=== PATIENT | male | born 1955 | race Caucasian/White ===

== ENCOUNTER 2020-04-28 01:10 | Outpatient (CLI) | payer OTHER, SELFPAY ==
[2020-04-28 17:49] LABS: SARS-CoV-2 RNA PCR Negative
== END 2020-04-28 01:11 | disposition home or self-care (01) ==
LOC: ANHCOVIDDT 01:10
PROVIDERS: PCP Family Medicine; Visit Provider Internal Medicine Gastroenterology
DX: Z01.812 Encounter for preprocedural laboratory examination (principal); Z20.828 Contact with and (suspected) exposure to other viral communicable diseases
CPT/HCPCS: 87635; C9803; U0003

== ENCOUNTER 2020-05-01 01:55 | Day surgery (SDC) | payer OTHER, SELFPAY ==
[2020-04-24 14:56] VITALS: BMI 25.4
[2020-05-01] MEDS: LACTATED RINGERS 1,000 ML 150 ML IV CONT (06:53)
[2020-05-01 06:55] VITALS: BP 139/81; PULSE 72; RESP 16; TEMP 36.1; O2SAT 100; BMI 25.1
--- NOTE | 2020-05-01 07:29 | WPDANESEPPF ---
Anes - Initial Pre Proc Eval Procedure: Operation Date: 05/01/20 08:00 Proposed Procedures p Screening Colonoscopy - Abhijeet Lama MD Date/Time: 05/01/20 07:29 Surgeon: Abhijeet Lama MD Pre Op Diagnosis: neoplasm screening, hx colon polyps Patient Data Age: 64 Gender: M Height: 6 ft Weight: 84 kg Last Vital Signs Temp 97.0 F L 05/01/20 06:55 Pulse 72 05/01/20 06:55 Resp 16 05/01/20 06:55 BP 139/81 05/01/20 06:55 Pulse Ox 100 05/01/20 06:55 Allergies Allergy/AdvReac Type Severity Reaction Status Date / Time No Known Allergies Allergy Verified 05/01/20 06:54 Home Medications Medication Instructions Recorded Confirmed Type lisinopril 20 See Rx Instructions .ROUTE 01/09/20 04/24/20 Rx mg-hydrochlorothiazide 25 mg tablet .COMPLEX #90 tablet atorvastatin 10 mg tablet See Rx Instructions .ROUTE 03/21/20 04/24/20 Rx .COMPLEX #90 tablet testosterone cypionate 200 mg/mL 200 mg IM .Q4W #3 vial 04/04/20 04/24/20 Rx intramuscular oil dextroamphetamine-amphetamine ER 30 mg PO QAM #30 cap 04/11/20 04/24/20 Rx 30 mg 24hr capsule,extend release Patient hx anesthesia problems: none Family hx anesthesia problems: none PMFSH Past Medical History Medical History (Updated 02/06/20 @ 10:55 by Clif Alba MD) ADD (attention deficit disorder) without hyperactivity CKD (chronic kidney disease) stage 3, GFR 30-59 ml/min Essential (primary) hypertension Hyperlipidemia LDL goal <100 Hypogonadism in male Lumbar spondylosis Surgical History Surgical History History of foot surgery left foot History of hand surgery (~07/2000) left hand Hx of tonsillectomy Social History Social History Smoking status: Former smoker Second hand tobacco smoke exposure: No Smoking end date: 08/03/00 Alcohol intake: current Substance use: never Substance use type: does not use Living arrangements: with family Gender identity (if verbalized by the patient): Male Anes - Eval Final PreProcedure Day of Procedure 05/01/20 07:29 Patient weight: normal Heart: regular rate and rhythm Lungs: clear to auscultation Airway: Mallampati scale class II Neurological: alert and oriented Last oral intake: >/= 8 hours ASA classification: III Emergent: no Anesthetic plan: proceed Anesthesia type and monitoring: general GIVS and standard monitoring Informed Consent: The patient's anesthetic plan and its attendant risks and benefits were discussed with the patient/family/POA. Questions were solicited and answers provided to the satisfaction of the patient/family/POA.
--- NOTE | 2020-05-01 07:43 | WPDGICN ---
Assessment and Plan Assessment and plan (1) History of colon polyps: Code(s): Z86.010 - Personal history of colonic polyps Status: Acute Assessment and Plan: Patient presents today for screening colonoscopy because of prior history of colon polyps. Further recommendations will be given after endoscopy. There is no known family history of colon disease. GI Consult Note Consult date/time: 05/01/20 07:43 HPI: Sami Bello is a 64 year old male seen in evaluation at the request of Dr Alba. Patient presents for screening colonoscopy. Patient has a history of colon polyps in the past. His current weight appetite bowel movements are normal. He denies abdominal pain. He has had no bleeding. Patient's family history is noncontributory. Review of Systems Review of Systems: All systems reviewed & are unremarkable except as noted in HPI and below PMFSH Past Medical History Medical History ADD (attention deficit disorder) without hyperactivity CKD (chronic kidney disease) stage 3, GFR 30-59 ml/min Essential (primary) hypertension Hyperlipidemia LDL goal <100 Hypogonadism in male Lumbar spondylosis Surgical History Surgical History History of foot surgery left foot History of hand surgery (~07/2000) left hand Hx of tonsillectomy Social History Social History Smoking status: Former smoker Second hand tobacco smoke exposure: No Smoking end date: 08/03/00 Alcohol intake: current Substance use: never Substance use type: does not use Living arrangements: with family Gender identity (if verbalized by the patient): Male Meds Home Medications and Allergies Home Medications Medication Instructions Recorded Confirmed Type lisinopril 20 See Rx Instructions .ROUTE 01/09/20 04/24/20 Rx mg-hydrochlorothiazide 25 mg tablet .COMPLEX #90 tablet atorvastatin 10 mg tablet See Rx Instructions .ROUTE 03/21/20 04/24/20 Rx .COMPLEX #90 tablet testosterone cypionate 200 mg/mL 200 mg IM .Q4W #3 vial 04/04/20 04/24/20 Rx intramuscular oil dextroamphetamine-amphetamine ER 30 mg PO QAM #30 cap 04/11/20 04/24/20 Rx 30 mg 24hr capsule,extend release Allergies Allergy/AdvReac Type Severity Reaction Status Date / Time No Known Allergies Allergy Verified 05/01/20 06:54 Vital Signs Vital Signs - 24 hr 05/01/20 06:55 Temperature 97.0 F L Pulse Rate 72 Respiratory Rate 16 Blood Pressure 139/81 Pulse Oximetry 100 Exam Narrative: Exam Narrative: Physical exam reveals patient to be alert. Vital signs stable. HEENT exam unremarkable. Lungs are clear to auscultation and percussion. Heart is without murmur or extra sounds. Abdominal exam bowel sounds are present soft nontender with no hepatosplenomegaly. Digital external rectal exam is normal.
[2020-05-01 08:11] VITALS: BP 118/75; PULSE 70; RESP 18; O2SAT 100
[2020-05-01 08:21] VITALS: BP 134/81; PULSE 67; RESP 18; O2SAT 100
[2020-05-01 08:31] VITALS: BP 143/87; PULSE 64; RESP 18; O2SAT 100
--- NOTE | 2020-05-01 11:04 | SUR.PHASEII ---
0837 discharge instructions given, monitor shows 1st degree heart block- anesthesia aware-instructed pt to follow up with primary. explained to patient about monitor showing 1st degree heart block and need to follow up on this with primary.
== END 2020-05-01 08:45 | disposition home or self-care (01) ==
PROVIDERS: PCP Family Medicine; Visit Provider Internal Medicine Gastroenterology
PROC: 0DJD8ZZ Inspection of Lower Intestinal Tract, Via Natural or Artificial Opening Endoscopic (ICD-10-PCS; CPT 45378; principal; 2020-05-01 08:00)
DX: Z12.11 Encounter for screening for malignant neoplasm of colon (principal); K64.8 Other hemorrhoids; K57.30 Diverticulosis of large intestine without perforation or abscess without bleeding; I12.9 Hypertensive chronic kidney disease with stage 1 through stage 4 chronic kidney disease, or unspecified chronic kidney disease; N18.3 Chronic kidney disease, stage 3 (moderate); E78.5 Hyperlipidemia, unspecified; Z87.891 Personal history of nicotine dependence; Z86.010 Personal history of colon polyps
CPT/HCPCS: 45378; J2704; J7120

== ENCOUNTER 2020-07-25 06:35 | Outpatient (CLI) | payer OTHER, SELFPAY ==
--- NOTE | ~2020-07-25 | CT_ITS ---
EXAMINATION: CT abdomen pelvis w con INDICATION: Abdominal pain TECHNIQUE: Computed tomographic images of the abdomen and pelvis were obtained after the administrati on of 100 cc of Omnipaque 350 intravenous contrast. The dose-length product (DLP) was 506.06 mGy-cm. Automated exposure control and iterative reconstruction technique were employed. COMPARISON: 04/11/2013 FINDINGS: Minimal dependent atelectasis is present in the lung bases. The heart size is normal. There is focal hepatic steatosis The ligamentum teres. The liver is otherwise unremarkable. The spleen, pancreas, gallbladder, and adr enal glands are normal. There is a 2.9 cm cyst of the right kidney. Cysts of the left kidney measure up to 1.6 cm. The left renal artery is thrombosed and mildly expanded at its origin. There has been m oderate atrophy of the left kidney since the comparison examination. No pathologically enlarged abdom inal or pelvic lymph nodes are identified. There is no free intraperitoneal gas or evidence of bowel obstruction. Colonic diverticulosis is present without evidence of diverticulitis. There are appendic oliths in the otherwise normal-appearing appendix. There is mild lumbar spondylosis. IMPRESSION: 1. Findings consistent with subacute thrombosis at the origin of the left renal artery with moderate atrophy of the left kidney. Reviewed, dictated and finalized at location [facility]. [facility]
[2020-07-25 07:05] LABS: Estimated Glomerular Filt Rate 41
== END 2020-07-25 06:36 | disposition home or self-care (01) ==
PROVIDERS: PCP Family Medicine; Visit Provider Internal Medicine Gastroenterology
DX: R10.9 Unspecified abdominal pain (principal)
CPT/HCPCS: 74177; Q9967

== ENCOUNTER 2020-09-19 07:41 | Outpatient (CLI) | payer OTHER, SELFPAY ==
--- NOTE | ~2020-09-19 | CT_ITS ---
EXAMINATION: CTA abdomen DATE: 09/19/2020 08:22 INDICATION: Upper abdominal pain. Renal artery stenosis. Hypertension. TECHNIQUE: Computed tomography (CT) of the abdomen was performed with 100 cc Omnipaque 350 intravenou s contrast. Automated exposure control and iterative reconstruction technique were employed. Exam dos e: 387.24 mGy-cm total exam DLP. COMPARISON: 07/25/2020 CT abdomen pelvis FINDINGS: There is mild discoid atelectasis or scarring in the right lower lobe. Normal heart size. No pericardial or pleural effusion. No hepatic, splenic, pancreatic or adrenal space-occupying mass lesion. The gallbladder is present. N o gallbladder wall thickening or pericholecystic fluid or fat stranding. No bile duct or pancreatic d uct dilatation. No pancreatic mass lesion or calcification. Normal splenic size. Normal morphology of the adrenal glands. There is a 2.8 cm right renal cyst. There is severe atrophy of the left kidney. Left renal cysts are suggested. There is nearly complete occlusion of the left renal artery proximally. There is severe smooth atroph y of the left kidney. There are 2 right renal arteries originating from the abdominal aorta. No abdominal aortic aneurysm or dissection. There is minimal abdominal aortic atherosclerosis. The ce liac, superior mesenteric and inferior mesenteric arteries are widely patent. No intraperitoneal or retroperitoneal mass lesion or adenopathy or ascites. Normal appendix. There is diverticulosis of the left and right colon. No bowel obstruction, bowel wall thickening, pne umatosis or intraperitoneal free air is evident. IMPRESSION: Severe left renal artery stenosis with associated left renal prominent atrophy Bilateral renal cysts Diverticulosis of left and right colon Reviewed, dictated and finalized at [facility]. Reviewed, dictated and finalized at location B. ECTOR SCALES IMPRESSION: Severe left renal artery stenosis with associated left renal promi nent atrophy Bilateral renal cysts Diverticulosis of left and right colon
[2020-09-19 08:14] LABS: Estimated Glomerular Filt Rate > 60
== END 2020-09-19 07:42 | disposition home or self-care (01) ==
PROVIDERS: PCP Family Medicine; Visit Provider Internal Medicine Nephrology
DX: I70.1 Atherosclerosis of renal artery (principal); R10.10 Upper abdominal pain, unspecified; N28.1 Cyst of kidney, acquired; K57.30 Diverticulosis of large intestine without perforation or abscess without bleeding
CPT/HCPCS: 74175; Q9967

== ENCOUNTER 2020-09-25 13:55 | Outpatient (CLI) | payer OTHER, SELFPAY ==
--- NOTE | ~2020-09-25 | NM_ITS ---
EXAMINATION: NM renal flow and function DATE: 09/25/2020 15:54 INDICATION: Renal artery stenosis TECHNIQUE: 7.63 mCi Tc-99m MAG3 was administered IV. The patient was scanned in the supine position. A posterior abdominal radionuclide angiogram was obtained. A subsequent time course of static images of the kidneys, ureters, and bladder was obtained. COMPARISON: CT angiogram dated 09/19/2020 FINDINGS: The posterior abdominal radionuclide angiogram and sequential static images show normal size, positio n, and morphology of the right kidney. The left kidney is normally positioned but small. Peak renal p arenchymal uptake was 1.9 min in right kidney (normal peak 3-5 minutes). There is essentially no incr ease in uptake in the left kidney following the first pass of the activity bolus. The relative early renal uptake was 5.0% on the left and 95.0% on the right (<40% is abnormal). No abnormalities of the ureters or bladder are seen. T1/2 for clearance of activity from the left kidney and proximal collecting system was measurable wit h essentially plateau of likely blood pool activity throughout the 30 minute duration of the study. T1/2 for clearance of activity from the right kidney and proximal collecting system was 11.5 minutes. Notes on interpretation: T1/2 <10 minutes is normal, 10-15 minutes is low grade obstruction of questi onable clinical significance, 15-20 minutes is partial obstruction that is likely clinically signific ant, >20 minutes is high grade obstruction. Note that false positives may be seen with supine positio janeen, dehydration, severely dilated nonobstructed kidney, atonic collecting system, poor renal functi on, and chronic furosemide use. IMPRESSION: 1. Atrophic left kidney which contributes only 5% to total renal function. 2. Minimally increased T1/2 of clearance from the right kidney, equivocal for low-grade obstruction o f questionable clinical significance. Reviewed, dictated and finalized at location A. [place] PLANNER IMPRESSION: 1. Atrophic left kidney which contributes only 5% to total renal function. 2. Minimally increased T1/2 of clearance from the right kidney, equivocal for l ow-grade obstruction of questionable clinical significance.
== END 2020-09-25 13:56 | disposition home or self-care (01) ==
PROVIDERS: PCP Family Medicine; Visit Provider Internal Medicine Nephrology
DX: I70.1 Atherosclerosis of renal artery (principal); R10.10 Upper abdominal pain, unspecified
CPT/HCPCS: 78707; A9562

== ENCOUNTER 2020-12-20 06:34 | Outpatient (CLI) | payer OTHER, SELFPAY | END 2020-12-20 06:35 | disposition home or self-care (01) | PROVIDERS: PCP Family Medicine; Visit Provider Internal Medicine Nephrology | DX: R94.7 Abnormal results of other endocrine function studies (principal); I95.1 Orthostatic hypotension | CPT/HCPCS: 36415; 82533; 96372; J0834 ==

== ENCOUNTER 2021-09-24 11:08 | Outpatient (CLI) | payer OTHER, SELFPAY ==
--- NOTE | 2021-09-24 | ECG_ITS ---
Measurements Intervals [place] Rate: 70 P: -8 UT: 341 QRS: 11 QRSD: 114 T: 40 QT: 413 QTc: 447 Interpretive Statements SINUS RHYTHM WITH MARKED FIRST DEGREE AV BLOCK POSSIBLE LEFT ATRIAL ENLARGEMENT INTRAVENTRICULAR CONDUCTION DELAY ABNORMAL ECG Electronically Signed On 09-24-2021 12:34:26 SIZING SPRAYER by J Carlos Macias D.O.
== END 2021-09-24 11:09 | disposition home or self-care (01) ==
PROVIDERS: PCP Family Medicine; Visit Provider Podiatrist Foot & Ankle Surgery
DX: R03.0 Elevated blood-pressure reading, without diagnosis of hypertension (principal); I45.9 Conduction disorder, unspecified; I44.0 Atrioventricular block, first degree
CPT/HCPCS: 93005

== ENCOUNTER 2022-07-16 11:06 | Outpatient (CLI) | payer OTHER, SELFPAY ==
--- NOTE | ~2022-07-16 | CT_ITS ---
Non-contrast Head CT History: Headache Technique: Axial non-contrast imaging of the brain was performed. Dose reduction technique was used on this scan by utilizing automated exposure control and iterative reconstruction technique. The dose -length product (DLP) was 605.33 mGy-cm. Findings: There is no evidence of intracranial hemorrhage, mass lesion, or acute infarct. Brain par enchyma appears normal. The ventricles and subarachnoid spaces are normal in size. The calvarium ap pears normal. The visualized paranasal sinuses and mastoid air cells are clear. Impression: No significant abnormality seen. Reviewed, dictated and finalized at location [] ED PRINTER Impression: No significant abnormality seen.
== END 2022-07-16 11:07 | disposition home or self-care (01) ==
PROVIDERS: PCP Family Medicine; Visit Provider Family Medicine
DX: R51.9 Headache, unspecified (principal)
CPT/HCPCS: 70450

== ENCOUNTER 2022-10-09 09:25 | Outpatient (CLI) | payer BC, SELFPAY ==
[2022-10-09 20:56] LABS: Alanine Aminotransferase 25 U/L (6-50); Albumin Level 4.6 g/dL (3.5-5.1); Alkaline Phosphatase 99 U/L (38-126); Anion Gap 8 mmol/L (8-16); Aspartate Amino Transferase 51 U/L (17-59); Bilirubin,Total 1.2 mg/dL (0.2-1.3); Blood Urea Nitrogen 27 mg/dL (9-20); Calcium 8.6 mg/dL (8.4-10.2); Carbon Dioxide 28 mmol/L (22-30); Chloride 103 mmol/L (98-107); Estimated Glomerular Filt Rate 47; Glucose 50 mg/dL (65-110); Potassium 4.4 mmol/L (3.4-5.0); Sodium 139 mmol/L (137-145)
== END 2022-10-09 09:26 | disposition home or self-care (01) ==
LOC: ANHGOSHLAB 09:26
PROVIDERS: PCP Family Medicine; Visit Provider Family Medicine
DX: E29.1 Testicular hypofunction (principal); I10 Essential (primary) hypertension
CPT/HCPCS: 36415; 80053

== ENCOUNTER 2023-01-03 18:14 | Emergency (ER) | payer BC, SELFPAY ==
--- NOTE | ~2023-01-03 | XR_ITS ---
AP view of the pelvis and AP and lateral views of the right hip Clinical history: Pain Findings: No acute fracture or dislocation is seen. Osseous alignment is anatomic. Bilateral hip and SI joint spaces are preserved. Soft tissues are unremarkable. Impression: No significant abnormality is seen. Reviewed, dictated and finalized at [facility]. Impression: No significant abnormality is seen.
--- NOTE | ~2023-01-03 | XR_ITS ---
Lumbosacral Spine: AP and lateral views Clinical History: Pain COMPARISON: 01/11/2018 Findings: The normal lordotic curve is maintained. No fracture identified. Mild degenerative disc kal nges are present throughout the lumbar spine. 4 mm retrolisthesis of L3 over L4 noted. There is mild to moderate facet arthropathy at L4-L5 and L5-S1. The sacroiliac joints are normally outlined. Impression: No acute fracture. 4 mm retrolisthesis of L3 over L4. Mild degenerative spondylosis. Reviewed, dictated and finalized at location M. Impression: No acute fracture. 4 mm retrolisthesis of L3 over L4. Mild degenerative spondylosis.
[2023-01-03 18:22] VITALS: BP 155/80; PULSE 96; RESP 16; TEMP 36.6; O2SAT 100
--- NOTE | 2023-01-03 20:03 | ED.FALL ---
HPI - Fall General Chief Complaint: Fall Stated Complaint: FALL, R HIP PAIN Time Seen by Provider: 01/03/23 19:38 History of Present Illness HPI Narrative: Patient is a 67-year-old male presenting with right hip pain after a fall. Patient states that he fell off of a 3 step ladder approximately 4 hours ago. States that he fell back and landed on his right hip. Denies losing consciousness. States that he had severe right hip pain following the fall. States that it took approximately 30 minutes for the pain to improve before he was able to stand. States that he was able to walk normally but as he was sitting on the couch eating dinner he again started having severe right hip and flank pain. Denies numbness or weakness. Denies neck pain. Denies chest or abdominal pain. No nausea or vomiting. States that as long as he stays still, his pain is minimal. Related Data Home Medications Medication Instructions Recorded Confirmed aspirin 81 mg tablet,delayed 81 mg PO DAILY 08/06/20 01/06/23 release atorvastatin 40 mg tablet 40 mg PO QHS 02/06/21 01/06/23 amlodipine 5 mg tablet 5 mg PO DAILY 01/06/23 01/06/23 Allergies Allergy/AdvReac Type Severity Reaction Status Date / Time No Known Allergies Allergy Verified 01/06/23 09:23 Review of Systems Review of Systems: All systems reviewed & are unremarkable except as noted in HPI and below PMFSH Past Medical History Medical History Acute trigeminal herpes zoster 02/2020 ADD (attention deficit disorder) without hyperactivity CKD (chronic kidney disease) stage 3, GFR 30-59 ml/min Erectile dysfunction Essential (primary) hypertension History of colon polyps Hyperlipidemia LDL goal <100 Left renal atrophy Lumbar spondylosis Renal artery thrombosis Stenosis of left renal artery Surgical History Surgical History History of esophageal dilatation 04/2019 History of foot surgery (~2009) left foot History of foot surgery (~2021) History of hand surgery (~07/2000) left hand Hx of tonsillectomy (~1960) Family History Family History Mother Patient's mother is in good health Family history of malignant neoplasm of breast in first degree relative Father Family history of renal cell carcinoma Social History Social History Smoking status: Former smoker Tobacco type: cigarettes Second hand tobacco smoke exposure: No Smoking end date: 08/03/89 Alcohol intake: current Alcohol use details: consumes 1 beer daily Substance use: never Substance use type: does not use Lack of Transportation: No Lack of Food: Never True Current Housing: I Have Housing Concerned About Future Housing: No Difficulty Paying Gas/Electric Bills: No Difficulty Paying for Meds: No Currently Unemployed: No Education: High School Diploma/GED Difficulty w/ Childcare or Family Care: No Living arrangements: with family Gender identity (if verbalized by the patient): Male Exam Narrative: GENERAL: Well-appearing, well-nourished, and in no acute distress. HEAD: Normocephalic, atraumatic. EYES: PERRLA and EOMI. ENT: Nares clear, no rhinorrhea or epistaxis. Mucous membranes moist. NECK: Supple. BACK: no midline tenderness of cervical/thoracic/lumbar spine CHEST: Clear to auscultation. No respiratory distress. HEART: Regular rate and rhythm. Normal peripheral pulses. ABDOMEN: Soft, nontender, nondistended EXTREMITIES: Normal range of motion. tender over lateral R hip and R iliac crest SKIN: Warm, dry, no rash. NEURO: No focal deficits. Alert and oriented x3. PSYCH: Normal mood and affect. Course Vital Signs Vital signs: Vital Signs Temperature 98 F 01/03/23 18:22 Pulse Rate 96 01/03/23 18:22 Respiratory Ra
[2023-01-03] MEDS: HYDROcodone/acetaminophen (*CRX) 5-325 MG TABLET 1 TAB PO (20:10)
[2023-01-03] MEDS: CYCLOBENZAPRINE HCL 10 MG TABLET PO (21:34)
[2023-01-03 21:51] VITALS: BP 115/78; PULSE 79; RESP 15; TEMP 36.4; O2SAT 96
== END 2023-01-03 21:52 | disposition home or self-care (01) ==
PROVIDERS: Emergency Provider Emergency Medicine; PCP Family Medicine
DX: M25.551 Pain in right hip (principal); W11.XXXA Fall on and from ladder, initial encounter; I12.9 Hypertensive chronic kidney disease with stage 1 through stage 4 chronic kidney disease, or unspecified chronic kidney disease; N18.30 Chronic kidney disease, stage 3 unspecified; E78.5 Hyperlipidemia, unspecified; Z87.891 Personal history of nicotine dependence; Z79.82 Long term (current) use of aspirin; F98.8 Other specified behavioral and emotional disorders with onset usually occurring in childhood and adolescence
CPT/HCPCS: 72100; 73502; 99284; A9270

== ENCOUNTER 2023-03-28 20:06 | Emergency (ER) | payer BC, SELFPAY ==
[2023-03-28] VITALS (17 sets, daily range): BP systolic 119–152; BP diastolic 78–87; PULSE 87–115; RESP 12–27; TEMP 36.8; O2SAT 93–99
--- NOTE | ~2023-03-28 | XR_ITS ---
EXAMINATION: XR chest 2V DATE: 03/28/2023 20:41 INDICATION: Left-sided chest tightness TECHNIQUE: PA and lateral views of the chest were obtained. COMPARISON: None FINDINGS: The lungs are clear with no focal airspace opacities, pulmonary edema, pleural effusion or pneumothor ax. Arch size is normal with mildly prominent left paracardial fat pad. Mild thoracic dextrocurvature . IMPRESSION: 1. No acute cardiopulmonary disease. Reviewed, dictated and finalized at location A.
--- NOTE | 2023-03-28 20:09 | ECG_ITS ---
Measurements Intervals [place] Rate: 111 P: 83 NC: 192 QRS: -21 QRSD: 106 T: 35 QT: 334 QTc: 454 Interpretive Statements Likely atrial tachycardia BORDERLINE LEFT AXIS DEVIATION [QRS AXIS < -20] ABNORMAL RHYTHM ECG NO PREVIOUS ECG AVAILABLE FOR COMPARISON Electronically Signed On 03-29-2023 11:13:26 CDT by Gage Steven MD
[2023-03-28 20:23] LABS: Basophils Absolute Auto 0.1 K/mm3 (0.0-0.1); Basophils Percent Auto 0.5 % (0.2-1.2); Eosinophils Absolute Auto 0.1 K/mm3 (0-0.3); Eosinophils Percent Auto 1.3 % (0-4.4); Hematocrit 45.7 % (42.0-52.0); Immature Granulocyte Absolute 0.06 K/mm3 (0.00-0.031); Immature Granulocyte Percent A 0.5 % (0-0.5); Lymphocytes Absolute Auto 2.88 K/mm3 (0.9-3.2); Lymphocytes Percent Auto 26.4 % (18.3-44.2); Mean Corpuscular HGB Conc 32.8 g/dl (32-36); Mean Corpuscular Hemoglobin 32.3 pg (26-34); Mean Corpuscular Volume 98.5 fl (80-100); Mean Platelet Volume 8.4 fl (7.4-10.4); Monocytes Absolute Auto 0.9 K/mm3 (0.1-0.6); Monocytes Percent Auto 7.9 % (2.6-8.5); Neutrophils Absolute Auto 6.9 K/mm3 (1.3-6.7); Neutrophils Percent Auto 63.4 % (45.5-73.1); Platelet Count Result 186 k/mm3 (150-375); Red Blood Count 4.64 M/mm3 (4.6-6.20); Red Cell Distribution Width 12.7 % (11.5-14.5); White Blood Count 10.9 K/mm3 (4.5-10.0)
[2023-03-28] MEDS: ASPIRIN 81 MG CHEWABLE TABLET 324 MG PO (20:26)
[2023-03-28 20:33] LABS: Alanine Aminotransferase 43 U/L (6-50); Albumin Level 4.1 g/dL (3.5-5.1); Alkaline Phosphatase 88 U/L (38-126); Anion Gap 6 mmol/L (8-16); Aspartate Amino Transferase 38 U/L (17-59); Bilirubin,Total 0.4 mg/dL (0.2-1.3); Blood Urea Nitrogen 32 mg/dL (9-20); Calcium 8.5 mg/dL (8.4-10.2); Carbon Dioxide 24 mmol/L (22-30); Chloride 107 mmol/L (98-107); Estimated CRCL calculation 40 ml/min; Estimated Glomerular Filt Rate 38; Glucose 99 mg/dL (65-110); INR 0.9; Lipase 145 U/L (23-300); Potassium 4.2 mmol/L (3.4-5.0); Prothrombin Time 12.7 Seconds (11.1-14.7); Sodium 137 mmol/L (137-145)
[2023-03-28 20:34] LABS: Partial Thromboplastin Time 24.6 SECONDS (22.3-36.8)
--- NOTE | 2023-03-28 20:39 | ED.GENADULT ---
HPI - General Adult General Chief complaint: Chest Pain Stated complaint: Low BP, High Heart Rate Time Seen by Provider: 03/28/23 20:27 History of Present Illness HPI narrative: Patient is a 67-year-old gentleman who presents the emergency department with chief complaint of fast heart rate. Patient reports that he was eating dinner and he felt as though his heart was beating a little faster than normal patient also said he felt a little bit of a full sensation in his chest. Patient reports he has history of renal artery stenosis and and reports that he has history of hypertension and has no prior history of cardiac disease. The patient reports his Apple Watch showed his heart rate was about 120 did not given atrial fibrillation morning. Related Data Home Medications Medication Instructions Recorded Confirmed aspirin 81 mg tablet,delayed 81 mg PO DAILY 08/06/20 01/06/23 release atorvastatin 40 mg tablet 40 mg PO QHS 02/06/21 01/06/23 amlodipine 5 mg tablet 5 mg PO DAILY 01/06/23 01/06/23 Allergies Allergy/AdvReac Type Severity Reaction Status Date / Time No Known Allergies Allergy Verified 03/28/23 20:20 Review of Systems Review of Systems: A 10 system review of systems was completed on the patient and is negative except for what is stated in the HPI. Nursing and ancillary documentation was reviewed. [facility] Past Medical History Medical History Acute trigeminal herpes zoster 02/2020 ADD (attention deficit disorder) without hyperactivity CKD (chronic kidney disease) stage 3, GFR 30-59 ml/min Erectile dysfunction Essential (primary) hypertension History of colon polyps Hyperlipidemia LDL goal <100 Left renal atrophy Lumbar spondylosis Renal artery thrombosis Stenosis of left renal artery Surgical History Surgical History History of esophageal dilatation 04/2019 History of foot surgery (~2009) left foot History of foot surgery (~2021) History of hand surgery (~07/2000) left hand Hx of tonsillectomy (~1960) Family History Family History Mother Patient's mother is in good health Family history of malignant neoplasm of breast in first degree relative Father Family history of renal cell carcinoma Social History Social History Smoking status: Former smoker Tobacco type: cigarettes Second hand tobacco smoke exposure: No Smoking end date: 08/03/89 Alcohol intake: current Alcohol use details: consumes 1 beer daily Substance use: never Substance use type: does not use Lack of Transportation: No Lack of Food: Never True Current Housing: I Have Housing Concerned About Future Housing: No Difficulty Paying Gas/Electric Bills: No Difficulty Paying for Meds: No Currently Unemployed: No Education: High School Diploma/GED Difficulty w/ Childcare or Family Care: No Living arrangements: with family Gender identity (if verbalized by the patient): Male Exam Narrative: GENERAL: Well-appearing, well-nourished, and in no acute distress. HEAD: Normocephalic, atraumatic. EYES: PERRLA and EOMI. ENT: Nares clear, no rhinorrhea or epistaxis. Mucous membranes moist. NECK: Supple. CHEST: Clear to auscultation. No respiratory distress. HEART: Regular rate and rhythm. No murmur heard. Normal peripheral pulses. ABDOMEN: Soft, nontender, nondistended, normal active bowel sounds. EXTREMITIES: Normal range of motion. No edema. SKIN: Warm, dry, no rash. NEURO: No focal deficits. Alert and oriented x3. PSYCH: Normal mood and affect. Course Vital Signs Vital signs: Vital Signs Temperature 36.8 C 03/28/23 20:12 Pulse Rate 108 H 03/28/23 20:12 Respiratory Rate 22 H 03/28/23 20:12 Blood Pressure 152
[2023-03-28 20:44] LABS: Troponin I < 0.012 ng/mL (0.000-0.034)
[2023-03-28] MEDS: SODIUM CHLORIDE 0.9% IV 1,000 ML 999 ML IV CONT ×2 (21:29→23:18)
[2023-03-28 23:39] LABS: Troponin I < 0.012 ng/mL (0.000-0.034)
--- NOTE | 2023-03-28 23:51 | PC.NURSE ---
Only 100 ml of 2nd liter of NS infused, patient did not want anymore to infuse. Patient states he feels much better and is ready to go home.
== END 2023-03-28 23:53 | disposition home or self-care (01) ==
PROVIDERS: Emergency Provider Emergency Medicine; PCP Family Medicine
DX: R00.2 Palpitations (principal); I12.9 Hypertensive chronic kidney disease with stage 1 through stage 4 chronic kidney disease, or unspecified chronic kidney disease; N18.30 Chronic kidney disease, stage 3 unspecified; E78.5 Hyperlipidemia, unspecified; Z87.891 Personal history of nicotine dependence
CPT/HCPCS: 36415; 71046; 80053; 83690; 84484; 85025; 85610; 85730; 93005; 96360; 96361; 99284; A9270; J7030

== ENCOUNTER 2023-11-24 14:47 | Outpatient (CLI) | payer MEDICARE, BC, SELFPAY ==
--- NOTE | ~2023-11-24 | XR_ITS ---
XR cervical spine min 6V 11/24/2023 15:09 Indication: Neck pain Procedure: 8 views of the cervical spine including flexion/extension views Comparison: 05/06/2010 Findings: There is disc narrowing and endplate hypertrophy at C5-6, C6-7 and C7-T1. No prevertebral s oft tissue swelling. No significant alteration of alignment with flexion/extension. There is uncinate and facet hypertrophy at the described levels above. Lateral masses normally aligned. Odontoid proce ss is normal. There is reversal of cervical lordosis. Impression: 1: Moderate cervical spondylosis. Reviewed, dictated and finalized at location B. Impression: 1: Moderate cervical spondylosis.
== END 2023-11-24 14:48 | disposition home or self-care (01) ==
LOC: ANHIMG 14:52
PROVIDERS: PCP Family Medicine; Visit Provider Family Medicine
DX: M47.892 Other spondylosis, cervical region (principal)
CPT/HCPCS: 72052

== ENCOUNTER 2023-12-20 13:32 | Outpatient (CLI) | payer MEDICARE, SELFPAY ==
--- NOTE | ~2023-12-20 | MR_ITS ---
EXAMINATION: MR cervical spine wo con DATE: 12/20/2023 15:11 INDICATION: Neck pain and headaches. TECHNIQUE: Magnetic resonance imaging (MRI) of the cervical spine was performed without intravenous c ontrast. Sequences included sagittal T2-weighted FSE, sagittal T2-weighted FS FSE, sagittal T1-weight ed FSE, axial MERGE, and axial T2-weighted FSE. COMPARISON: C-spine 11/24/2023 FINDINGS: Mild degenerative change at the atlantodental interval. Reversed lordosis centered at C5-6. Vertebral body heights are maintained. Multilevel moderate loss of disc height and hydration. The co rd signal is normal. Normal cervicomedulary junction. The following disc levels are specifically disc ussed: C2-C3: 3 mm right foraminal broad-based protrusion and marginal osteophyte complex. There is moderate right and mild left uncovertebral joint osteoarthritis. There is moderate right and mild left facet joint osteoarthritis. There is moderate neural foraminal stenosis. There is severe right and mild lef t central canal stenosis. C3-C4: Small broad-based disc bulge and marginal osteophyte complex. There is moderate left and mild right uncovertebral joint osteoarthritis. There is mild left and moderate right facet joint osteoarth ritis. There is moderate left and mild right neural foraminal stenosis. There is moderate central can al stenosis. C4-C5: Mild disc bulge and large osteophyte complex. There is moderate right and mild left uncoverteb ral joint osteoarthritis. There is moderate right and mild left facet joint osteoarthritis. There is severe right and mild left neural foraminal stenosis. There is mild central canal stenosis. C5-C6: Mild disc bulge and marginal osteophyte complex. There is severe right and mild left uncoverte bral joint osteoarthritis. There is mild right and no left facet joint osteoarthritis. There is sever e right and mild left neural foraminal stenosis. There is mild central canal stenosis. C6-C7: Mild disc bulge and marginal osteophyte complex. There is severe right and moderate left uncov ertebral joint osteoarthritis. There is mild bilateral facet joint osteoarthritis. There is moderate bilateral neural foraminal stenosis. There is mild central canal stenosis. C7-T1: Mild disc bulge and marginal osteophyte complex. There is moderate bilateral uncovertebral susannah nt osteoarthritis. There is moderate bilateral facet joint osteoarthritis. There is moderate right an d mild left neural foraminal stenosis. There is no central canal stenosis. IMPRESSION: Multilevel moderate degenerative disc disease, uncovertebral joint degenerative change, and facet art hropathy. 3 mm right foraminal C2-3 disc protrusion which contributes to severe right neural foraminal narrowin g at that level. Severe right C4-5 and C5-6 neural foraminal narrowing noted secondary to degenerative disc, uncoverte bral joint, and facet changes. Moderate central canal stenosis secondary to degenerative facet, disc, and uncovertebral joint change s at C2-3 and C3-4. Reviewed, dictated and finalized at location K. IMPRESSION: Multilevel moderate degenerative disc disease, uncovertebral joint degenerative change, and facet arthropathy. 3 mm right foraminal C2-3 disc protrusion which contributes to severe right izzy ral foraminal narrowing at that level. Severe right C4-5 and C5-6 neural foraminal narrowing noted secondary to degene rative disc, uncovertebral joint, and facet changes. Moderate central canal stenosis secondary to degenerative facet, disc, and unco vertebral joint changes at C2-3 and C3-4.
== END 2023-12-20 13:33 | disposition home or self-care (01) ==
LOC: ANHIMG 13:33
PROVIDERS: PCP Family Medicine; Visit Provider Nurse Practitioner Family
DX: M50.21 Other cervical disc displacement, high cervical region (principal); M50.322 Other cervical disc degeneration at C5-C6 level; M47.892 Other spondylosis, cervical region; M53.82 Other specified dorsopathies, cervical region; M47.812 Spondylosis without myelopathy or radiculopathy, cervical region; R93.89 Abnormal findings on diagnostic imaging of other specified body structures
CPT/HCPCS: 72141

== ENCOUNTER 2024-08-01 13:53 | Outpatient (CLI) | payer MEDICARE, SELFPAY ==
[2024-08-01 16:29] LABS: Influenza A QL RT-PCR Positive (Negative); Influenza B QL RT-PCR Negative (Negative); RSV RNA, RT-PCR Negative (Negative); SARS-CoV-2 RNA PCR Negative (Negative)
== END 2024-08-01 13:54 | disposition home or self-care (01) ==
LOC: ANHLAB 13:54
PROVIDERS: PCP Family Medicine; Visit Provider Family Medicine
DX: J06.9 Acute upper respiratory infection, unspecified (principal); Z20.822 Contact with and (suspected) exposure to COVID-19
CPT/HCPCS: 87637

== ENCOUNTER 2024-10-18 01:26 | Day surgery (SDC) | payer MEDICARE, SELFPAY ==
[2024-10-10 11:45] VITALS: BMI 25.4
--- OUTSIDE RECORDS SUMMARY | 2024-10-18 01:29 | XMS_ITS | Patient Health Summary ---
Author Organization [facility] Address [address] [facility] [facility] [place] [address] Care Team Providers Care Relocation Manager Name Role Phone Saurabh Hanson MD Primary Care Provider [phone] Note from [facility],non-owned Affiliates and Associated Physician Practices is amultiple site organization consisting of ambulatory clinics and hospital sitesin [place], [place], [place] and [place]. This disclosure is being madepursuant to the Care Everywhere program and may not contain all information available regarding this patient. Last updated 18.[facility] Social History Tobacco Use Types Packs/Day Years Used Date Smoking Tobacco: Never Assessed Sex and Gender Information Value Date Recorded Sex Assigned at Not on file Gender Identity Not on file Sexual Orientation Not on file Procedures * DERMATOPATHOLOGY(Performed 02/11/2023) * DERMATOPATHOLOGY(Performed 12/23/2021) * DERMATOPATHOLOGY(Performed 05/28/2021) * DERMATOPATHOLOGY(Performed 12/02/2018) Results * DERMATOPATHOLOGY (02/11/2023 1:16 PM CDT) Only the most recent of4 resultswithin the time period is included. Case Report Dermatopathology Report Case: [id number] Authorizing Provider: Leonie Amaral DO Collected: 02/11/2023 01:16 PM Ordering Location: [facility] DermPath Lab Received: 02/12/2023 11:52 AM Pathologist: Haley You MD Specimen: Skin, right ant le 1:31 PM CDT DERMATOPATHOLOGY LABORATORY Final Diagnosis Specimen A. SKIN, right ant le: SQUAMOUS CELL CARCINOMA IN SITU, PRESENT AT THE BASE OF THE SPECIMEN (D04.71) (see microscopic description and comment) 1:31 PM CDT DERMATOPATHOLOGY LABORATORY Clinical History R/O SCC 1:31 PM CDT DERMATOPATHOLOGY LABORATORY Gross Description Specimen A: Received is one formalin filled container labeled with the patient's name and designated right ant le. The specimen consists of a shave biopsy measuring 8x5x3 mm. Jar 0. 1:31 PM CDT DERMATOPATHOLOGY LABORATORY Microscopic Description Specimen A. SKIN, right ant le: The epidermis shows parakeratosis, full thickness disorderly maturation of keratinocytes, mitoses at different levels, and dyskeratotic cells. Focal endophytic features are present. The lesion extends to the base of the biopsy. COMMENT: An invasive squamous cell carcinoma cannot be ruled out. 1:31 PM CDT DERMATOPATHOLOGY LABORATORY Disclaimer An external and internal positive and negative controls are appropriate for the histochemical, immunohistochemical and immunofluorescence stain(s) in this case (if any), except where stated explicitly. The performance characteristics of the stain(s) cited in this report were developed and its performance characteristic determined by the Dermatopathology Laboratory at [facility], directed by Dr. Diana Caro. These tests need not be, and therefore are not, approved by the [place] Food and Drug Administration. The tests are used for clinical purposes. Billing Codes Specimen Charges Stain Charges 51990 1 3 1:31 PM CDT DERMATOPATHOLOGY LABORATORY Embedded Images 1:31 PM CDT DERMATOPATHOLOGY LABORATORY Pathology/Cytolo gy TISSUE SPECIMEN FROM SKIN / Unknown 02/11/2023 1:16 PM CDT 02/12/2023 11:52 AM CDT Leonie Amaral DO LAB - PATHOLOGY/C YTOLOGY ORDERABLES DERMATOPATHOLOGY LABORATORY [facility] - Department of Dermatology [facility] Medicine [address] [place] [address], [address] [phone] Care Teams Relocation Manager Relationship Specialty Start Date End Date Saurabh Hanson MD [address] [place] [address] PCP - General 12/02/18
--- OUTSIDE RECORDS SUMMARY | 2024-10-18 01:29 | XMS_ITS | Clinical Summary ---
Author Organization [facility] Address [address] [place] [phone] Care Team Providers Care Hospital Television Rental Clerk Name Role Phone Santo Alba MD Primary Care Provider Allergies No known active allergies Medications Adderall XR 30 mg 24 hr capsule Take 1 capsule (30 mg total) by mouth daily 0 Active lisinopriL (PRINIVIL,ZESTR IL) 20 mg tablet Take 1 tablet (20 mg total) by mouth daily Active aspirin 81 mg enteric coated tablet TAKE 1 TABLET DAILY 90 tablet 3 4 Active finasteride (PROSCAR) 5 mg tablet 4 Active tamsulosin (FLOMAX) 0.4 mg extended release capsule 4 Active testosterone cypionate (DEPO-TESTOTERO NE) 200 mg/mL injection ADMINISTER 1 ML IN THE MUSCLE ONCE A MONTH 2 Active atorvastatin (LIPITOR) 40 mg tablet Take 1 tablet (40 mg total) by mouth nightly 90 tablet 2 4 Active Active Problems Problem Noted Date Diagnosed Date 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 Surgical History Surgery Date Site/Laterality Comments CARDIAC CATHETERIZATION Medical History Medical History Date Comments Hypertension Chronic kidney disease 07/25/2020 Hyperlipidemia DVT (deep venous thrombosis) (HCC) Family History Medical History Relation Name Comments Cancer Father Carlton Bello Stroke Mother Casie Bello Relation Name Status Comments Father Carlton Bello (Age 59) Mother Casie Bello (Age 88) Social History Tobacco Use Types Packs/Day Years Used Date Smoking Tobacco: Former Cigarettes Q uit: 08/03/1989 Smokeless Tobacco: Never Tobacco Cessation:Counseling Given: Not Answered Alcohol Use Standard Drinks/Week Comments Yes 7 (1 standard drink = 0.6 oz pur e alcohol) Personal Safety Answer Date Recorded Getting School Help Needed Not on file 07/15 Sex and Gender Information Value Date Recorded Sex Assigned at Not on file Legal Sex Male 6:53 PM BOND MANAGER Gender Identity Male 09/19/2020 5:56 PM BOND MANAGER Sexual Orientation Straight 09/19/2020 5: 56 PM BOND MANAGER Obstetrics History Last Filed Vital Signs Vital Sign Reading Time Taken Comments Blood Pressure 118/72 04/06/2024 9:36 AM CDT Pulse 94 04/06/2024 9:36 AM CDT Temperature 35.8 C (96.4 F) 07/27/2020 8:18 AM BOND MANAGER RN notified Respiratory Rate 20 07/27/2020 8:18 AM BOND MANAGER Oxygen Saturation 98% 04/06/2024 9:3 6 AM CDT Inhaled Oxygen Concentration - - Weight 86.4 kg (190 lb 6.4 oz) 04/06/20 9:36 AM CDT Height 182.9 cm (6') 04/06/2024 9:36 AM CDT Body Mass Index 25.82 04/06/2024 9:36 AM CDT Plan of Treatment Health Maintenance Due Date Last Done Comments Colon Cancer Screening-Colonoscopy 1955 Depression Screening 1955 Hepatitis C Screening 1955 Prostate Cancer Screening-PSA 1955 DTaP/Tdap/Td Vaccine (1 - Tdap) 12/07/1966 Hepatitis B Screening 12/07/1973 Pneumococcal vaccine 65+ (1 of 1 - PCV) 12/07/2005 Zoster Vaccine (1 of 2) 12/07/2005 Abdominal Aortic Aneurysm (A AA) Screen 12/07/2020 Well Visit 65+ 12/07/2020 Fall Risk Assessment 07/26/2021 07/26/2020 Influenza Vaccine (#1) 2024 2, 05/29/2021, 06/03/2020, Additional history exists Medical Devices Implanted Type Area Fixing Carpenter Device Identifier Shelf Expiration Date Model / Serial / Lot Citizengine [id number] Device Closure Angio-Seal Vip Bondek-Plus Polyglyd L70 Cm Od6 Fr Odsec.035 In Vascular - [id number] Implanted:Qty: 1 on 07/26/2020 by Angel Ballard MD at [facility] Right: Erasto Iyer Medical [facility] 04/02/2021 [id number] / / [id number] Insurance [facility] ACCESS CHOICE MEDICARE AARP Advance Directives For more information, please contact: [phone] * Full Code (Latest Code Status on File) Date Activated Date Inactivated Comments 07/25/2020 4:36 PM 07/27/2020 2:52 PM Care Teams Hospital Television Rental Clerk Relationship Specialty Start Date End Date Santo Alba MD [address] [facility] [address] [address] PCP - General Family Practice 04/05/24
--- OUTSIDE RECORDS SUMMARY | 2024-10-18 01:29 | XMS_ITS | Encounter Summary ---
Author Organization [facility] Address [address] [place] [address] Care Team Providers Care Extrusion Utility Worker Name Role Phone Saurabh Hanson MD Primary Care Provider [phone] Encounter Details Date Type Department Care Team (Late st Contact Info) Description 02/11/2023 Lab Requisition [facility] - DermPath Lab [address] [facility] [address] [facility] [place] [address] Leonie Amaral DO [address] [facility] [address] [place] [address] Social History Tobacco Use Types Packs/Day Years Used Date Smoking Tobacco: Never Assessed Sex and Gender Information Value Date Recorded Sex Assigned at Not on file Gender Identity Not on file Sexual Orientation Not on file documented as of this encounter Plan of Treatment Not on file documented as of this encounter Procedures Procedure Name Priority Date/Time Associated Diagnosis Comments DERMATOPATHOLOGY Routine 02/11/2023 1:16 PM CDT documented in this encounter Results * DERMATOPATHOLOGY (02/11/2023 1:16 PM CDT) Case Report Dermatopathology Report Case: [id number] Authorizing Provider: Leonie Amaral DO Collected: 02/11/2023 01:16 PM Ordering Location: [facility] DermPath Lab Received: 02/12/2023 11:52 AM Pathologist: Haley You MD Specimen: Skin, right ant le 1:31 PM CDT DERMATOPATHOLOGY LABORATORY Final Diagnosis Specimen A. SKIN, right ant le: SQUAMOUS CELL CARCINOMA IN SITU, PRESENT AT THE BASE OF THE SPECIMEN (D04.71) (see microscopic description and comment) 1:31 PM CDT DERMATOPATHOLOGY LABORATORY Clinical History R/O SCC 3 1:31 PM CDT DERMATOPATHOLOGY LABORATORY Gross Description Specimen A: Received is one formalin filled container labeled with the patient's name and designated right ant le. The specimen consists of a shave biopsy measuring 8x5x3 mm. Jar 0. 3 1:31 PM CDT DERMATOPATHOLOGY LABORATORY Microscopic Description Specimen A. SKIN, right ant le: The epidermis shows parakeratosis, full thickness disorderly maturation of keratinocytes, mitoses at different levels, and dyskeratotic cells. Focal endophytic features are present. The lesion extends to the base of the biopsy. COMMENT: An invasive squamous cell carcinoma cannot be ruled out. 3 1:31 PM CDT DERMATOPATHOLOGY LABORATORY Disclaimer An external and internal positive and negative controls are appropriate for the histochemical, immunohistochemical and immunofluorescence stain(s) in this case (if any), except where stated explicitly. The performance characteristics of the stain(s) cited in this report were developed and its performance characteristic determined by the Dermatopathology Laboratory at [facility], directed by Dr. Diana Caro. These tests need not be, and therefore are not, approved by the [place] Food and Drug Administration. The tests are used for clinical purposes. Billing Codes Specimen Charges Stain Charges 44593 1 3 1:31 PM CDT DERMATOPATHOLOGY LABORATORY Embedded Images 1:31 PM CDT DERMATOPATHOLOGY LABORATORY Pathology/Cytolo gy TISSUE SPECIMEN FROM SKIN / Unknown 02/11/2023 1:16 PM CDT 02/12/2023 11:52 AM CDT Leonie Amaral DO LAB - PATHOLOGY/C YTOLOGY ORDERABLES DERMATOPATHOLOGY LABORATORY [facility] - Department of Dermatology [address], [address] [phone] documented in this encounter Visit Diagnoses Not on filedocumented in this encounter Care Teams Extrusion Utility Worker Relationship Specialty Start Date End Date Saurabh Hanson MD [address] [place] [address] PCP - General 12/02/18 documented as of this encounter
--- OUTSIDE RECORDS SUMMARY | 2024-10-18 01:29 | XMS_ITS | Encounter Summary ---
Author Organization [facility] Address [address] [facility] [address] Care Team Providers Care Tomography Technologist Name Role Phone Saurabh Hanson MD Primary Care Provider [phone] Encounter Details Date Type Department Care Team (Late st Contact Info) Description 12/03/2018 Lab Requisition [facility] Care DermPath Lab [address] [facility] [place] [phone] Leonie Amaral DO [address] [facility] [address] [place] [address] Social History Tobacco Use Types Packs/Day Years Used Date Smoking Tobacco: Never Assessed Sex and Gender Information Value Date Recorded Sex Assigned at Not on file Gender Identity Not on file Sexual Orientation Not on file documented as of this encounter Plan of Treatment Not on file documented as of this encounter Procedures Procedure Name Priority Date/Time Associated Diagnosis Comments DERMATOPATHOLOGY Routine 12/02/2018 12:0 0 AM CDT documented in this encounter Results * DERMATOPATHOLOGY (12/02/2018 12:00 AM CDT) Case Report Dermatopathology Report Case: [id number] Authorizing Provider: Leonie Amaral DO Collected: 12/02/2018 12:00 AM Pathologist: Wanda Araya MD Received: 12/03/2018 06:58 AM Specimens: A) - Skin, left preauricular B) - Skin, left lower back 9 1:03 PM CDT DERMATOPATHOLOGY LABORATORY Final Diagnosis Specimen A. SKIN, left preauricular: HYPERPLASTIC (HYPERTROPHIC) ACTINIC KERATOSIS WITH VERRUCOUS FEATURES (L57.0) (see microscopic description) Specimen B. SKIN, left lower back: LENTIGINOUS MELANOCYTIC NEVUS, COMPOUND TYPE, IRRITATED (COMPOUND MELANOCYTIC NEVUS WITH ARCHITECTURAL DISORDER) (D22.5) 1:03 PM T DERMATOPATHOLOGY LABORATORY Clinical History A: R/O IDN vs BCC vs ISK, non-healing. B: R/O melanoma, nevus, irregular color. 1:03 PM T DERMATOPATHOLOGY LABORATORY Gross Description Specimen A: Received is one formalin filled container labeled with the patient's name and designated left preauricular. The specimen consists of a shave measuring [id number]. Jar 0. Specimen B: Received is one formalin filled container labeled with the patient's name and designated left lower back. The specimen consists of a shave measuring 2h2a3we. Jar 0. 1:03 PM CDT DERMATOPATHOLOGY LABORATORY Microscopic Description Specimen A. SKIN, left preauricular: There is hyperkeratosis alternating with parakeratosis. There is slightly papillated epidermal hyperplasia with disorderly maturation of keratinocytes with nuclear pleomorphism confined to the lower half of the epidermis. Additional deeper sections were obtained and reviewed. Specimen B. SKIN, left lower back: This is a compound nevus. There is melanin pigment in the stratum corneum. There is architectural disorder characterized by a lentiginous proliferation of melanocytes between irregular nevus nests of cells along the dermal epidermal junction. There is underlying fibroplasia of the papillary dermis. The intradermal component is bland in appearance and matures with depth. (Compound Lucas's Nevus or Compound Dysplastic Nevus) 1:03 PM T DERMATOPATHOLOGY LABORATORY Disclaimer An external and internal positive and negative controls are appropriate for the histochemical, immunohistochemical and immunofluorescence stain(s) in this case (if any), except where stated explicitly. The performance characteristics of the stain(s) cited in this report were developed and its performance characteristic determined by the Dermatopathology Laboratory at [facility], directed by Dr. Diana Caro. These tests need not be, and therefore are not, approved by the [place] Food and Drug Administration. The tests are used for clinical purposes. Billing Codes Specimen Charges Stain Charges 61206 59906 1 1 1:03 PM CDT DERMATOPATHOLOGY LABORATORY Embedded Images 05/06/201 9 1:03 PM CDT DERMATOPATHOLOGY LABORATORY Pathology/Cytology TISSUE SPECIMEN FROM SKIN / Unknown 12/02/2018 12/03/2018 6:58 AM CDT Miscellaneous samples (specimen) TISSUE SPECIMEN FROM SKIN / Unknown 12/02/2018 12/03/2018 6:58 AM CDT Leonie Geraldine Amaral DO LAB - PATHOLOGY/C YTOLOGY ORDERABLES DERMATOPATHOLOGY LABORATORY [facility] - Department of Dermatology [address] [place] [address], 5th Floor Lab [address] [phone] documented in this encounter Visit Diagnoses Not on filedocumented in this encounter Care Teams Tomography Technologist Relationship Specialty Start Date End Date Saurabh Hanson MD [address] [place] [phone] PCP - General 12/02/18 documented as of this encounter
--- OUTSIDE RECORDS SUMMARY | 2024-10-18 01:29 | XMS_ITS | Clinical Summary ---
Author Organization [facility] Address [address] [place] [phone] Phone Care Team Providers Care Coin Box Inspector Name Role Phone Santo Alba MD Primary Care Provider Allergies No known active allergies Medications Medication Sig Dispensed Refills Start Date End Date Status Adderall XR 30 MG 24 hr capsule Take 30 mg by mouth 1 (one) time each day in the morning 08/08/2020 Active omeprazole (PriLOSEC) [address] capsule Take 20 mg by mouth daily 06/20/2020 Active atorvastatin (LIPITOR) 40 MG tablet 09/27/2020 Active Aspirin Low Dose 81 MG EC tablet 11/08/2021 Active tadalafil (CIALIS) 20 MG tablet TAKE 1 TABLET BY MOUTH ONCE DAILY NEEDED FOR SEXUAL ACTIVITY. ADMINISTER APPROXIMATELY 30 MINUTES BEFORE SEXUAL ACTIVITY. DO NOT USE MORE THAN 1 DOSE PER 24 HOURS. 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 Resolved Problems Problem Noted Date Diagnosed Date Resolved Date Nonspecific abnormal results of function study of kidney 08/31/2020 11/30/2020 Immunizations Name Administration Dates Next Due Influenza TIV (IM) 05/03/2022,05/29/2021, 020 Family History Medical History Relation Comments Kidney disease Neg Hx Social History Tobacco Use Types Packs/Day Years Used Date Smoking Tobacco: Former Smokeless Tobacco: Never Alcohol Use Standard Drinks/Week Comments Yes 2 (1 standard drink = 0.6 oz pur e alcohol) Sex and Gender Information Value Date Recorded Sex Assigned at Male 11/30/2020 1:13 PM MDT Gender Identity Male 11/30/2020 1:13 PM MDT Sexual Orientation Straight 11/30/2020 1: 13 PM MDT Last Filed Vital Signs Vital Sign Reading Time Taken Comments Blood Pressure 124/82 07/02/2022 8:51 AM GLASS SANDER BELT Pulse 72 07/02/2022 8:51 AM GLASS SANDER BELT Temperature 35.8 C (96.4 F) 07/02/2022 8:51 AM GLASS SANDER BELT Respiratory Rate - - Oxygen Saturation - - Inhaled Oxygen Concentration - - Weight 88 kg (194 lb) 07/02/2022 8:51 AM GLASS SANDER BELT Height 180.3 cm (5' 11 ) 07/02/2022 8:51 AM GLASS SANDER BELT Body Mass Index 27.06 07/02/2022 8:51 AM GLASS SANDER BELT Plan of Treatment Health Maintenance Due Date Last Done Comments Pneumococcal PPSV23/PCV13 65 + Years / High and Highest Risk (1 of 4 - PCV) 12/07/1961 Influenza Vaccine (#1) 2024 , 05/29/2021, 06/03/2020 Care Teams Coin Box Inspector Relationship Specialty Start Date End Date Santo Alba MD [address] [place] [address] PCP - General Internal Medicine 12/11/21
--- OUTSIDE RECORDS SUMMARY | 2024-10-18 01:29 | XMS_ITS | Clinical Summary ---
Author Organization [facility] Address [address] [place] [address] Care Team Providers Care Garment Sorter Name Role Phone Saurabh Hanson MD Primary Care Provider [phone] Source Comments [facility] [employer],non-owned Affiliates and Associated Physician Practices is amultiple site organization consisting of ambulatory clinics and hospital sitesin [place], [place], [place] and [place]. This disclosure is being madepursuant to the Care Everywhere program and may not contain all information available regarding this patient. Last updated 18.[facility] [employer] Social History Tobacco Use Types Packs/Day Years Used Date Smoking Tobacco: Never Assessed Sex and Gender Information Value Date Recorded Sex Assigned at Not on file Gender Identity Not on file Sexual Orientation Not on file Plan of Treatment Health Maintenance Due Date Last Done Comments COLOGUARD (AGES 45-75) - COL ON CA SCREENING 1955 COLON MONITORING 1955 COLONOSCOPY - COLON CA SCREENING 1955 CT COLONOGRAPHY - COLON CA SCREENING 1955 Colorectal Cancer Screening 1955 FIT - COLON CA SCREENING 1955 FLEX SIG - COLON CA SCREENING 1955 LIPID TESTING 1955 HEPATITIS C SCREENING 12/03/1973 DTAP/TDAP/TD VACCINES (1 - Tdap) 12/07/1974 PNEUMOCOCCAL VACCINE 50+ (1 of 1 - PCV) 12/07/2005 ZOSTER VACCINE (1 of 2) 12/07/2005 COVID-19 VACCINE ( - 2023-2 5 season) 2024 INFLUENZA VACCINE (#1) 2024 DEPRESSION SCREENING 08/03/2024 Respiratory Syncytial Virus (RSV) Vaccine Pt: or over 60 yrs (1 - 1-dose 75+ series) 12/07/2030 HEPATITIS B VACCINE Aged Out No longe r eligible based on patient's age to complete this topic HIB VACCINE Aged Out No longer eligi ble based on patient's age to complete this topic HPV VACCINE Aged Out No longer eligi ble based on patient's age to complete this topic MENINGOCOCCAL (Group B) VACC INE SHARED DECISION-MAKING Aged Out No longer eligibl e based on patient's age to complete this topic MENINGOCOCCAL GROUPS A/C/Y/W VACCINE Aged Out No longer eligible b ased on patient's age to complete this topic Care Teams Garment Sorter Relationship Specialty Start Date End Date Saurabh Hanson MD [address] [place] [phone] PCP - General 12/02/18
--- OUTSIDE RECORDS SUMMARY | 2024-10-18 01:29 | XMS_ITS | Referral Summary ---
Author Organization [facility] Address [address] [place] [address] Care Team Providers Care Hand Molder Name Role Phone Saurabh Hanson MD Primary Care Provider [phone] Source Comments [facility],non-owned Affiliates and Associated Physician Practices is amultiple site organization consisting of ambulatory clinics and hospital sitesin [place], [place], [place] and [place]. This disclosure is being madepursuant to the Care Everywhere program and may not contain all information available regarding this patient. Last updated 18.[facility] Social History Tobacco Use Types Packs/Day Years Used Date Smoking Tobacco: Never Assessed Sex and Gender Information Value Date Recorded Sex Assigned at Not on file Gender Identity Not on file Sexual Orientation Not on file Plan of Treatment Not on file Care Teams Hand Molder Relationship Specialty Start Date End Date Saurabh Hanson MD [address] [place] [phone] [facility] - General 12/02/18
--- OUTSIDE RECORDS SUMMARY | 2024-10-18 01:29 | XMS_ITS | Referral Summary ---
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 Gender Identity Male 09/19/2020 5:56 PM COMPUTER INSTALLATION ENGINEER Sexual Orientation Straight 09/19/2020 5: 56 PM COMPUTER INSTALLATION ENGINEER Last Filed Vital Signs Vital Sign Reading Time Taken Comments Blood Pressure 118/72 04/06/2024 9:36 AM CDT Pulse 94 04/06/2024 9:36 AM CDT Temperature 35.8 C (96.4 F) 07/27/2020 8:18 AM COMPUTER INSTALLATION ENGINEER RN notified Respiratory Rate 20 07/27/2020 8:18 AM COMPUTER INSTALLATION ENGINEER Oxygen Saturation 98% 04/06/2024 9:3 6 AM CDT Inhaled Oxygen Concentration - - Weight 86.4 kg (190 lb 6.4 oz) 04/06/20 9:36 AM CDT Height 182.9 cm (6') 04/06/2024 9:36 AM CDT Body Mass Index 25.82 04/06/2024 9:36 AM CDT Plan of Treatment Not on file Medical Devices Implanted Type Area [employer]or Device Identifier Shelf Expiration Date Model / Serial / Lot [employer] Postg Marcell [id number] Device Closure Angio-Seal Vip [employer]-Plus Polyglyd L70 Cm Od6 Fr [id number] In Vascular - [id number] Implanted:Qty: 1 on 07/26/2020 by Angel Ballard MD at [facility] Right: Groin [employer] Marcell 04/02/2021 [id number] / / [id number] Insurance [facility] CHOICE OOS ANTHEM ACCESS CHOICE MEDICARE [facility] Advance Directives For more information, please contact: [phone] * Full Code (Latest Code Status on File) Date Activated Date Inactivated Comments 07/25/2020 4:36 PM 07/27/2020 2:52 PM Care Teams Eye Dropper Assembler Relationship Specialty Start Date End Date Santo Alba MD [address] [place] [address] PCP - General Family Practice 04/05/24
[2024-10-18 06:10] VITALS: BP 136/74; PULSE 82; RESP 18; TEMP 35.8; O2SAT 100
[2024-10-18] MEDS: LACTATED RINGERS 1,000 ML 150 ML IV CONT (06:32)
--- NOTE | 2024-10-18 07:16 | P.PNAN_ITS ---
Anes - Initial Pre Proc Eval Procedure: Operation Date: 10/18/24 07:30 Proposed Procedures p Esophagogastroduodenoscopy - Ho Cherry MD Date/Time: 10/18/24 07:16 Surgeon: Ho Cherry MD Pre Op Diagnosis: GERD,Dysphagia Patient Data Age: 68 Gender: M Height: 1.83 m Weight: 85.1 kg Allergies Allergy/AdvReac Type Severity Reaction Status Date / Time No Known Allergies Allergy Verified 10/18/24 06:16 Home Medications ?Medication ?Instructions ?Recorded ?Confirmed ?Type aspirin 81 mg tablet,delayed 81 mg PO DAILY 08/06/20 10/18/24 History release atorvastatin 40 mg tablet 40 mg PO QHS 02/06/21 10/18/24 History sildenafil 100 mg tablet (Viagra) 100 mg PO DAILY PRN sexual 03/30/23 10/18/24 Rx activity #30 tabs finasteride 5 mg tablet 5 mg PO DAILY #90 tabs 04/27/24 10/18/24 Rx testosterone cypionate 200 mg/mL 200 mg IM MONTHLY #3 vials 08/01/24 10/10/24 Rx intramuscular oil (Depo-Testosterone) lisinopril 10 mg tablet 10 mg PO DAILY #90 tabs 08/10/24 10/18/24 Rx tamsulosin 0.4 mg capsule (Flomax) 0.4 mg PO QHS #90 caps 08/29/24 10/18/24 Rx dextroamphetamine-amphetamine ER 30 mg PO QAM #30 caps 09/26/24 10/18/24 Rx 30 mg 24hr capsule,extend release (Adderall XR) valacyclovir 500 mg tablet 1,000 mg PO Q8H PRN cold sores 09/29/24 10/10/24 History Patient hx anesthesia problems: none Family hx anesthesia problems: none Results Review: All pre-operative results and documents have been reviewed as part of the pre- operative evaluation. [facility] Past Medical History Medical History Cervical arthritis Neck pain on right side BPH (benign prostatic hyperplasia) Erectile dysfunction Left renal atrophy Stenosis of left renal artery Acute trigeminal herpes zoster 02/2020 Renal artery thrombosis History of colon polyps Lumbar spondylosis Hyperlipidemia LDL goal <100 ADD (attention deficit disorder) without hyperactivity CKD (chronic kidney disease) stage 3, GFR 30-59 ml/min Essential (primary) hypertension Surgical History Surgical History History of foot surgery (~2021) History of esophageal dilatation 04/2019 Hx of tonsillectomy (~1960) History of foot surgery (~2009) left foot History of hand surgery (~07/2000) left hand Family History Family History Mother Patient's mother is in good health Family history of malignant neoplasm of breast in first degree relative Father Family history of renal cell carcinoma Social History Social History Smoking status: Former smoker Tobacco type: cigarettes Second hand tobacco smoke exposure: No Smoking end date: 08/03/90 Alcohol intake: current Alcohol use details: consumes 1 beer daily Substance use: never Substance use type: does not use Do You Feel Safe in your Home?: Yes Lack of Transportation: No Lack of Food: Never True Current Housing: I Have Housing Concerned About Future Housing: No Difficulty Paying Gas/Electric Bills: No Difficulty Paying for Meds: No Currently Unemployed: No Education: High School Diploma/GED Difficulty w/ Childcare or Family Care: No Living arrangements: with family Gender identity (if verbalized by the patient): Male Anes - Eval Final PreProcedure Day of Procedure 10/18/24 07:16 Patient weight: normal Heart: regular rate and rhythm Lungs: decreased breath sounds Airway: Mallampati scale class II Neurological: alert and oriented Last oral intake: >/= 8 hours ASA classification: III Emergent: no Anesthetic plan: proceed Anesthesia type and monitoring: general GIVS and standard monitoring Results Review: All pre-operative results and documents have been reviewed as part of the pre- operative evaluation. Informed Consent: The patient's anesthetic plan and its attendant risks and benefits were di scussed with the patient/family/POA. Questions were solicited and answers provided to the satisfaction of the patient/family/POA.
--- NOTE | 2024-10-18 07:19 | PM.HPGS ---
History of Present Illness History of Present Illness Consent: Risks, benefits, and alternatives have been discussed and questions answered. Patient agrees to proceed with procedure. Chief complaint: GERD,Dysphagia Narrative: Sami Bello is a 68 year old male with dysphagia, few years ago had egd with dilation Review of Systems Review of Systems: All systems reviewed & are unremarkable except as noted in HPI and below PMFSH Past Medical History Medical History Cervical arthritis Neck pain on right side BPH (benign prostatic hyperplasia) Erectile dysfunction Left renal atrophy Stenosis of left renal artery Acute trigeminal herpes zoster 02/2020 Renal artery thrombosis History of colon polyps Lumbar spondylosis Hyperlipidemia LDL goal <100 ADD (attention deficit disorder) without hyperactivity CKD (chronic kidney disease) stage 3, GFR 30-59 ml/min Essential (primary) hypertension Surgical History Surgical History History of foot surgery (~2021) History of esophageal dilatation 04/2019 Hx of tonsillectomy (~1960) History of foot surgery (~2009) left foot History of hand surgery (~07/2000) left hand Family History Family History Mother Patient's mother is in good health Family history of malignant neoplasm of breast in first degree relative Father Family history of renal cell carcinoma Social History Social History Smoking status: Former smoker Tobacco type: cigarettes Second hand tobacco smoke exposure: No Smoking end date: 08/03/90 Alcohol intake: current Alcohol use details: consumes 1 beer daily Substance use: never Substance use type: does not use Do You Feel Safe in your Home?: Yes Lack of Transportation: No Lack of Food: Never True Current Housing: I Have Housing Concerned About Future Housing: No Difficulty Paying Gas/Electric Bills: No Difficulty Paying for Meds: No Currently Unemployed: No Education: High School Diploma/GED Difficulty w/ Childcare or Family Care: No Living arrangements: with family Gender identity (if verbalized by the patient): Male Meds Home Medications and Allergies Home Medications ?Medication ?Instructions ?Recorded ?Confirmed ?Type aspirin 81 mg tablet,delayed 81 mg PO DAILY 08/06/20 10/18/24 History release atorvastatin 40 mg tablet 40 mg PO QHS 02/06/21 10/18/24 History sildenafil 100 mg tablet (Viagra) 100 mg PO DAILY PRN sexual 03/30/23 10/18/24 Rx activity #30 tabs finasteride 5 mg tablet 5 mg PO DAILY #90 tabs 04/27/24 10/18/24 Rx testosterone cypionate 200 mg/mL 200 mg IM MONTHLY #3 vials 08/01/24 10/18/24 Rx intramuscular oil (Depo-Testosterone) lisinopril 10 mg tablet 10 mg PO DAILY #90 tabs 08/10/24 10/18/24 Rx tamsulosin 0.4 mg capsule (Flomax) 0.4 mg PO QHS #90 caps 08/29/24 10/18/24 Rx dextroamphetamine-amphetamine ER 30 mg PO QAM #30 caps 09/26/24 10/18/24 Rx 30 mg 24hr capsule,extend release (Adderall XR) valacyclovir 500 mg tablet 1,000 mg PO Q8H PRN cold sores 09/29/24 10/10/24 History Allergies Allergy/AdvReac Type Severity Reaction Status Date / Time No Known Allergies Allergy Verified 10/18/24 06:16 Exam Const: General: comfortable and no acute distress HENMT: Face/Nose/Sinus: Normal nares present Eyes: General: appearance normal, both eyes and all related structures Neck: Neck: no JVD Resp: Auscultation: clear to auscultation bilaterally Cardio: Rate: regular rate Rhythm: regular rhythm GI: Inspection: non-distended GI Palp: Yes Soft to palpation Skin: General skin exam: normal color Neuro: General: gait normal Speech: normal speech Extrem: General: normal to inspection Psych: Mental Status: mental status grossly normal Assessment and Plan Assessment and plan (1) Dysphagia: Qualifiers: Dysphagia type: esophageal phase Qualified Code(s): R13.19 - Other dysphagia Code(s): R13.10 - Dysphagia, unspecified Status: Acute Assessment and Plan: egd
[2024-10-18 07:34] VITALS: BP 119/68; PULSE 78; RESP 20; O2SAT 100
[2024-10-18 07:44] VITALS: BP 115/67; PULSE 78; RESP 20; O2SAT 97
[2024-10-18 07:54] VITALS: BP 126/73; PULSE 79; RESP 21; O2SAT 98
== END 2024-10-18 08:00 | disposition home or self-care (01) ==
PROVIDERS: PCP Family Medicine; Referring Provider Nurse Practitioner Family; Visit Provider Internal Medicine Gastroenterology
PROC: 0DJ08ZZ Inspection of Upper Intestinal Tract, Via Natural or Artificial Opening Endoscopic (ICD-10-PCS; CPT 43249; principal; 2024-10-18 07:30)
DX: K22.2 Esophageal obstruction (principal); K29.50 Unspecified chronic gastritis without bleeding; K21.9 Gastro-esophageal reflux disease without esophagitis; E78.5 Hyperlipidemia, unspecified; I12.9 Hypertensive chronic kidney disease with stage 1 through stage 4 chronic kidney disease, or unspecified chronic kidney disease; N18.30 Chronic kidney disease, stage 3 unspecified; N40.0 Benign prostatic hyperplasia without lower urinary tract symptoms; N52.9 Male erectile dysfunction, unspecified; F98.8 Other specified behavioral and emotional disorders with onset usually occurring in childhood and adolescence; M47.892 Other spondylosis, cervical region; M47.896 Other spondylosis, lumbar region; Z79.82 Long term (current) use of aspirin; Z98.890 Other specified postprocedural states; Z87.891 Personal history of nicotine dependence; Z86.79 Personal history of other diseases of the circulatory system; Z86.718 Personal history of other venous thrombosis and embolism; Z86.0100 Personal history of colon polyps, unspecified; Z80.3 Family history of malignant neoplasm of breast; Z80.51 Family history of malignant neoplasm of kidney
CPT/HCPCS: 43249; 43239; 88305; C1726; J2704; J7120